=== PATIENT | male | born 1930 | race Caucasian/White ===

== ENCOUNTER 2016-06-25 20:42 | Emergency (ER) | payer OTHER, MEDICARE ==
[~2016-06-25] VITALS: Ht 170.2 cm; Wt 88.3 kg
[~2016-06-25 20:42] MED LIST: ALLEGRA ALLERG180 MG PO; ARICEPT10 MG PO; CYANOCOBALAM1000 MCG PO; FISH OIL300 MG PO; FOLIC ACID1 MG PO; GLIPIZIDE10 MG PO; GLUCOPHAGE1000 MG PO; GLUCOPHAGE850 MG PO; GLUCOTROL10 MG PO; HYDROCHLOROTHIA25 MG PO; LASIX20 MG PO; NORVASC10 MG PO; ONCE DAILY1 EACH PO; VASOTEC20 MG PO; VITAMIN D10000 UNIT PO; XARELTO1 EACH PO; XARELTO15 MG PO; XARELTO20 MG PO; ZOCOR40 MG PO
[2016-06-25 21:26] LABS: HEMATOCRIT 36.3 % (38.0-50.0); MCH 30.7 PG (29.0-34.0); MCHC 32.8 G/DL (30.0-36.0); MCV 93.6 FL (86-99); MEAN PLAT.VOLUME 10.1 uM^3 (9.0-12.4); PLATELET COUNT 273 K/uL (156-360); RBC DIS.WIDTH-CV 13.4 % (11.8-14.6); RBC DIS.WIDTH-SD 44.3 % (39-53); RED BLOOD COUNT 3.88 M/uL (4.00-5.50); WHITE BLOOD COUNT 10.1 K/uL (4.1-10.2)
[2016-06-25 21:37] LABS: CHLORIDE 106 mEq/L (99-109); POTASSIUM 4.2 mEq/L (3.7-5.4); SODIUM 142 mEq/L (136-147)
[2016-06-25 21:40] LABS: GLUCOSE 209 mg/dL (70-99)
[2016-06-25 21:41] LABS: ANION GAP 10 MEQ/L (2-14); TOTAL BILIRUBIN 0.6 mg/dL (0.0-1.0)
[2016-06-25 21:43] LABS: ALKALINE PHOSPHATASE 64 IU/L (3-129); GFR ESTIMATE (CALCULATED) 51 mL/min/
[2016-06-25 21:44] LABS: UREA NITROGEN (BUN) 26 mg/dL (9-23)
[2016-06-25 21:45] LABS: DIRECT BILIRUBIN 0.3 mg/dL (0.0-0.3)
[2016-06-25 21:47] LABS: LIPASE 21 U/L (1.0-51.0)
[2016-06-25] MEDS ORDERED: SIMVASTATIN40 MG PO (22:16)
[2016-06-25 22:24] LABS: ADD MIUA? NO; BILIRUBIN NEGATIVE; BLOOD NEGATIVE; COLOR YELLOW ((YELLOW)); GLUCOSE (STRIP) NEGATIVE; KETONES NEGATIVE; LEUKOCYTES NEGATIVE; NITRITE NEGATIVE; PH, URINE 5.5 (5-8); PROTEIN (STRIP) NEGATIVE; SPECIFIC GRAVITY 1.025 (1.000-1.030); UCUL ADDED? NO; UROBILINOGEN 0.2 MG/DL (0.2-1.0)
[2016-06-26] MEDS ORDERED: FLAGYL500 MG PO (00:35)
[2016-06-26] MEDS ORDERED: NORCO 5/3251 TABLET PO (00:35)
[2016-06-26] MEDS ORDERED: CIPRO500 MG PO (00:35)
[2016-06-26 00:52] VITALS: BP 109/93
== END 2016-06-26 00:53 | disposition home or self-care (01) ==
LOC: EME 20:42
DX: K57.32 Diverticulitis of large intestine without perforation or abscess without bleeding (principal); E11.9 Type 2 diabetes mellitus without complications; I10 Essential (primary) hypertension; Z86.711 Personal history of pulmonary embolism; Z79.01 Long term (current) use of anticoagulants; Z87.891 Personal history of nicotine dependence
CPT/HCPCS: 74176; 80053; 81003; 82248; 83690; 85027; 99281; 99284

== ENCOUNTER 2016-11-17 11:19 | Emergency (ER) | payer OTHER, MEDICARE ==
[~2016-11-17] VITALS: Ht 172.7 cm; Wt 85.5 kg
[~2016-11-17 11:19] MED LIST changes: +CIPRO500 MG PO; +FLAGYL500 MG PO; +NORCO 5/3251 TABLET PO; +SIMVASTATIN40 MG PO
[2016-11-17 13:26] LABS: HEMATOCRIT 38.7 % (38.0-50.0); MCH 30.6 PG (29.0-34.0); MCHC 33.1 G/DL (30.0-36.0); MCV 92.6 FL (86-99); MEAN PLAT.VOLUME 9.6 uM^3 (9.0-12.4); PLATELET COUNT 258 K/uL (156-360); RBC DIS.WIDTH-CV 13.1 % (11.8-14.6); RBC DIS.WIDTH-SD 44.6 % (39-53); RED BLOOD COUNT 4.18 M/uL (4.00-5.50)
[2016-11-17 13:52] LABS: ANION GAP 10 MEQ/L (2-14); CHLORIDE 107 MEQ/L (99-109); SAMPLE HEMOLYSIS CHECK 0; SAMPLE ICTERIC CHECK 0; SAMPLE LIPEMIA CHECK 0; SODIUM 140 MEQ/L (136-147)
[2016-11-17 13:58] LABS: GFR ESTIMATE (CALCULATED) > 59 mL/min/; GLUCOSE 61 mg/dL (70-99); UREA NITROGEN (BUN) 16 mg/dL (9-23)
[2016-11-17 14:00] LABS: TROP-I INTERPRETATION NEGATIVE; TROPONIN-I < 0.01 ng/mL (0.0-0.30)
[2016-11-17 14:13] LABS: ADD MIUA? NO; BILIRUBIN NEGATIVE; BLOOD NEGATIVE; COLOR YELLOW ((YELLOW)); GLUCOSE (STRIP) 50; KETONES 5; LEUKOCYTES NEGATIVE; NITRITE NEGATIVE; PROTEIN (STRIP) 30; SPECIFIC GRAVITY 1.018 (1.000-1.030); UCUL ADDED? NO; UROBILINOGEN 0.2 MG/DL (0.2-1.0)
[2016-11-17] MEDS ORDERED: XARELTO20 MG PO (15:18)
[2016-11-17 15:58] LABS: POINT-OF-CARE METER ID UU13113800
[2016-11-17 16:02] VITALS: BP 122/70
== END 2016-11-17 16:10 | disposition home or self-care (01) ==
LOC: EME 11:19 → RME 11:19
PROVIDERS: Nurse Practitioner Family
DX: R42 Dizziness and giddiness (principal); R07.9 Chest pain, unspecified; E11.9 Type 2 diabetes mellitus without complications; I10 Essential (primary) hypertension; Z79.84 Long term (current) use of oral hypoglycemic drugs
CPT/HCPCS: 70450; 71020; 80048; 81003; 82948; 84484; 85027; 93005; 99281; 99285